=== PATIENT | male | born 1995 | race Caucasian/White ===

== ENCOUNTER 2018-02-20 02:58 | Emergency (ER) | payer OTHER ==
[~2018-02-20] VITALS: Ht 182.9 cm; Wt 104.3 kg
[2018-02-20] MEDS ORDERED: CLOZARIL25 MG PO ×3 (03:29→03:30)
[2018-02-20] MEDS ORDERED: PROZAC20 MG PO (03:31)
[2018-02-20] MEDS ORDERED: MELATONIN5 M1 PO (03:32)
[2018-02-20] MEDS ORDERED: ATIVAN0.5 MG PO (03:32)
[2018-02-20] MEDS ORDERED: RISPERDAL 1 MG T1 MG PO (03:32)
[2018-02-20] MEDS ORDERED: DIPHENHIST50 MG PO (03:32)
[2018-02-20] MEDS ORDERED: TOPAMAX 100 MG100 MG PO ×2 (03:33→03:34)
[2018-02-20] MEDS ORDERED: BENZTROPINE ME0.5 MG PO (03:33)
[2018-02-20] MEDS ORDERED: COREG3.125 MG PO (03:35)
[2018-02-20 06:31] LABS: HEMATOCRIT 46.5 % (42.0-52.0); HEMOGLOBIN 15.4 gm/dL (14.0-18.0); MCH 28.6 pg (26.0-34.0); MCHC 33.2 g/dL (28.0-37.0); MCV 86.2 fL (80.0-100.0); RBC 5.4 mil/uL (4.50-6.00); RDW 13.9 % (10.5-14.5); WBC 8.6 thou/uL (4.0-11.0)
[2018-02-20 06:32] LABS: CALCIUM 8.5 mg/dL (8.5-10.1); CREATININE 0.9 mg/dL (0.7-1.3); POTASSIUM 3.4 mmol/L (3.5-5.1)
[2018-02-20 06:38] LABS: ALBUMIN 4.1 g/dL (3.4-5.0); TOTAL BILIRUBIN 0.2 mg/dL (<0.1-1.0); TOTAL PROTEIN 7.4 g/dL (6.4-8.2)
[2018-02-20 07:46] LABS: AMP/METHAMP Negative (Negative); BARBITURATES Negative (Negative); BENZODIAZEPINES Negative (Negative); COCAINE Negative (Negative); METHADONE Negative (Negative); OPIATES Negative (Negative); PCP Negative (Negative)
[2018-02-20 08:08] VITALS: BP 108/59
== END 2018-02-20 08:10 | disposition home or self-care (01) ==
LOC: ER 02:58
PROVIDERS: Emergency Medicine
DX: F10.921 Alcohol use, unspecified with intoxication delirium (principal); R11.10 Vomiting, unspecified; F41.9 Anxiety disorder, unspecified; F32.9 Major depressive disorder, single episode, unspecified; I10 Essential (primary) hypertension; F20.9 Schizophrenia, unspecified; Z88.8 Allergy status to other drugs, medicaments and biological substances; Z88.1 Allergy status to other antibiotic agents; Y90.0 Blood alcohol level of less than 20 mg/100 ml

== ENCOUNTER 2018-08-31 01:44 | Emergency (ER) | payer OTHER ==
[~2018-08-31] VITALS: Ht 177.8 cm; Wt 108.9 kg
[~2018-08-31 01:44] MED LIST: ATIVAN0.5 MG PO; BENZTROPINE ME0.5 MG PO; CLOZARIL25 MG PO; COREG3.125 MG PO; DIPHENHIST50 MG PO; MELATONIN5 M1 PO; PROZAC20 MG PO; RISPERDAL 1 MG T1 MG PO; TOPAMAX 100 MG100 MG PO
[2018-08-31 08:00] VITALS: BP 119/66
== END 2018-08-31 08:01 | disposition home or self-care (01) ==
LOC: ER 01:44
DX: F10.129 Alcohol abuse with intoxication, unspecified (principal); F32.9 Major depressive disorder, single episode, unspecified; F41.9 Anxiety disorder, unspecified; I10 Essential (primary) hypertension; F20.9 Schizophrenia, unspecified; Z88.1 Allergy status to other antibiotic agents; Z88.8 Allergy status to other drugs, medicaments and biological substances; S00.31XA Abrasion of nose, initial encounter; X58.XXXA Exposure to other specified factors, initial encounter; Y93.89 Activity, other specified; Y92.89 Other specified places as the place of occurrence of the external cause; Y99.8 Other external cause status